=== PATIENT | female | born 1995 | race Caucasian/White ===

== ENCOUNTER 2017-07-08 11:35 | Observation (INO) ==
--- NOTE | 2017-07-08 11:57 | OB/GYN Progress Note ---
Date of Encounter: 07/08/17 Time of Encounter: 12:23 - Assessment and Plan (1) 22 weeks gestation of Current Visit: Yes Status: Acute PLan: - CTG shows no contractions - UA obtained, negative for UTI - education given concerning round ligament pain and importance of hydrating - Discussed with Damari Fitzgerald CNM. Pt safe for discharge home, with labor precautions, when to return to triage or call provider. Pt verbalizes understanding. - f/u with Dr. Ho in 2 weeks (2) Round ligament pain Current Visit: Yes Status: Acute (3) NST (non-stress test) reactive Current Visit: Yes Status: Acute FHR baseline = 140, FHT reassuring Subjective - Subjective Principal diagnosis: round ligament pain Antepartum ROS: movement normal, no loss of fluid, no vaginal bleeding, no contractions Objective - Exam FHR: category 1 FHR comments: FHR baseline= 140, accelerations present I examined this patient and my medical decision-making was reviewed with the Resident Physician. I agree with the documented findings, disposition and treatment plan as described except to the extent set forth below. ROCÍO Fatima Auscultation: bilateral: normal Abdomen: Present: normal appearance, soft, tenderness (medial to L ASIS with deep palpation, no tenderness in other quadrants. No peritanitis signs) Uterus: Present: normal
--- NOTE | 2017-07-08 12:29 | Discharge Summary ---
Date of Encounter: 07/08/17 Time of Encounter: 12:28 - Discharge Diagnosis (1) 22 weeks gestation of Priority: Primary Status: Acute (2) Round ligament pain Priority: Secondary Status: Acute - Discharge Medications Home Medications: Formula Tablet 07/08/17 [History] Allergies/Adverse Reactions: 3 Allergy/AdvReac Type Severity Reaction Status Date / Time Amoxicillin Allergy See Verified 08/21/15 16:48 Comments Date of admission: 07/08/17 11:35 Discharging clinician: Damari Fitzgerald Anticipated date of discharge: 07/08/17 - Patient Status Disposition: Home, Self-Care Condition: Good Functional capacity at discharge: independent ambulation Overall status at discharge: patient is progressing back to baseline - Discharge Instructions Additional Instructions: LABOR AND DELIVERY DISCHARGE INSTRUCTIONS Signs and Symptoms to be Reported to your Doctor Immediately: * Sudden gush, continuous or intermittent lead of fluid from vagina (note the time of gush and color of fluid) * Onset of bright red vaginal bleeding with or without pain (if you had a vaginal exam during this visit you may notice some dark red spotting. This is normal.) * Lower abdominal cramping or backache that is premenstrual-like feeling. * More than 6 contractions in one hour. * Burning during urination, having to urinate more frequently or pain in your mid-back. * A change in the baby's activity. This could be an increase or decrease in activity. * Severe headache which does not go away with tylenol. * Sudden swelling in the face, hands, arms and/or legs. * Upper abdominal pain - sometimes associated with heartburn or nausea and is not relieved by Maalox, Mylanta or Tums. * Dizziness or blurred vision or visual disturbances (seeing stars/lights). * Kick Counts One hour after a meal, lay down on one side in a quiet place. Count the number of edilberto the baby moves during an hour. If less than 6 movements, notify your physician. Diet: *Force fluids - 8-10 tall glasses of fluid per day. May include popsicles and jello. *Limit caffeine - this includes chocolate, coffee, tea, any soft drink containing such as all bam, [place] Yellow and Mountain DewTreatment of Round Ligament Pain Here are some tips that may help reduce your discomfort: Pain relief. Take [id number] acetaminophen for pain, if necessary. Ask your doctor if this is OK. Exercise. Get plenty of exercise to keep your stomach (core) muscles strong. Doing stretching exercises or yoga can be helpful. Ask your doctor which exercises are safe for you and your baby. A helpful exercise involves putting your hands and knees on the floor, lowering your head, and pushing your backside into the air. Avoid sudden movements. Change positions slowly (such as standing up or sitting down) to avoid sudden movements that may cause stretching and pain. Flex your hips. Bend and flex your hips before you cough, sneeze, or laugh to avoid pulling on the ligaments. Apply warmth. A heating pad or warm bath may be helpful. Ask your doctor if this is OK. Extreme heat can be dangerous to the baby. - Diet and Activity Activity: increase activity as tolerated Diet: advance to your usual diet Hospital Course [employer] Time Attestation: Total time spent providing and/or coordinating discharge services: - VTE Reasons for not Prescribing Prophylaxis: Treatment not Indicated - Low risk for VTE
[2017-07-08 12:33] LABS: Bilirubin,Urine Negative (Negative); Blood,Urine Negative (Negative); Clarity,Urine Cloudy (Clear); Color,Urine Yellow (Yellow); Glucose,Urine (UA) Normal (Normal); Ketones,Urine Negative (Negative); Leukocyte Esterase,Urine Small (Negative); Nitrite,Urine Negative (Negative); Protein,Urine Trace mg/dL (Neg-Trace); Specific Gravity,Urine 1.027 (1.010-1.025); Urobilinogen,Urine Normal (Normal)
[2017-07-08 12:36] LABS: Bacteria,Urine Few per hpf (None-Few); Hyaline Casts,Urine None Seen per lpf (None-Few); Squamous Epithelial Cell,Urine Many per lpf (None-Few)
[2017-07-08 12:41] LABS: Amphetamine Screen,Urine Negative ng/mL (Cutoff=1000); Barbiturate Screen,Urine Negative ng/mL (Cutoff=200); Benzodiazepines Screen,Urine Negative ng/mL (Cutoff=200); Cannabinoid Screen,Urine Negative ng/mL (Cutoff = 50); Cocaine Screen,Urine Negative ng/mL (Cutoff= 300); Opiate Screen,Urine Negative ng/mL (Cutoff=300); Phencyclidine Screen,Urine Negative ng/mL (Cutoff=25)
[2017-07-08 12:42] LABS: RBC,Urine 0-3 per hpf (0-3)
== END 2017-07-08 12:49 | disposition home or self-care (01) ==
LOC: 1NENULAB
PROVIDERS: ADMIT Advanced Practice Midwife; ATTEND Advanced Practice Midwife

== ENCOUNTER 2020-02-15 18:28 | Observation (INO) ==
[2020-02-15] MEDS ORDERED: Ringers Solution, Lactated 1,000 ML IVC SCH (18:45)
== END 2020-02-15 20:48 | disposition home health service (06) ==
LOC: 1NENULAB
PROVIDERS: ADMIT Obstetrics & Gynecology; ATTEND Obstetrics & Gynecology